=== PATIENT | female | born 1950 | race Caucasian/White ===

== ENCOUNTER 2021-02-17 12:52 | Inpatient (IN) | payer BC, MEDICARE ==
[~2021-02-17] VITALS: Ht 170.2 cm; Wt 76.0 kg
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
[2021-02-17] MEDS ORDERED: MORPHINE SULFATE 4 MG/ML, 1ML ONE (13:20)
[2021-02-17] MEDS ORDERED: MORPHINE SULFATE 4 MG/ML, 1ML IVPush ONE (13:30)
--- NOTE | 2021-02-17 13:49 | NUR ---
PT WAS MEDICATED FOR PAIN AGAIN. TO XR VIA [facility].
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
[2021-02-17] MEDS ORDERED: HYDROmorphone 2 MG/ML, 1ML ONE (14:50)
[2021-02-17] MEDS ORDERED: HYDROmorphone 2 MG/ML, 1ML IVPush PRN ×2 (15:00→15:30)
--- NOTE | 2021-02-17 15:02 | NUR ---
PT MEDICATED FOR R HIP PAIN AGAIN. RELUCTANT TO BE MOVED ONTO BACK FOR CXR, STATES SHE HAS SPINE PROBLEMS AND SCOLIOSIS ALSO AND CAN'T LAY HER HEAD/NECK DOWN ALL THE WAY. ERP AWARE. REPORTED TO ALCON BURTON.
[2021-02-17 15:06] LABS: ALBUMIN 3.6 g/dL (3.4-5.0); ANION GAP 5 mmol/L (5-15); CALCIUM 8.6 mg/dL (8.5-10.1); CHLORIDE 109 mmol/L (98-107); CREATININE 0.65 mg/dL (0.55-1.02)
[2021-02-17 15:07] LABS: BASOPHILS % (AUTO) 1 % (0-1); EOSINOPHILS % (AUTO) 2 % (1-7); LYMPHOCYTES % (AUTO) 8 % (22-44); MEAN CORPUSCULAR HEMOGLOBIN 31.7 pg (27.0-34.8); MEAN CORPUSCULAR HGB CONC 34.6 g/dL (32.4-35.8); MEAN PLATELET VOLUME 9.3 fL (7.4-10.4); MONOCYTES % (AUTO) 5 % (2-9); NEUTROPHILS % (AUTO) 85 % (42-75); PLATELET COUNT 181 x10^3/uL (130-400); RED CELL DISTRIBUTION WIDTH 12.9 % (9.6-15.2)
[2021-02-17 15:18] LABS: MD NO
[2021-02-17] MEDS ORDERED: HYDROmorphone 1 MG/ML, 1ML INJ ONE ×3 (15:21→18:47)
[2021-02-17] MEDS ORDERED: SODIUM CHLORIDE 0.9% 1,000 ML IV ONE (15:30)
[2021-02-17] MEDS ORDERED: NEOSTIGMINE 1 MG/ML, 10ML ONE (15:53)
[2021-02-17] MEDS ORDERED: GLYCOPYRROLATE 0.2MG/1ML, 5ML ONE (15:53)
--- NOTE | 2021-02-17 15:57 | NUR ---
PHONE REPORT TO MICHEAL WHITE
[2021-02-17] MEDS ORDERED: CHLORHEXIDINE 15 ML UDC ONE (16:15)
[2021-02-17] MEDS ORDERED: ACETAMINOPHEN 325 MG TABLET PO PRN ×2 (16:30→18:30)
[2021-02-17] MEDS ORDERED: CHLORHEXIDINE 15 ML UDC PO ONE (16:30)
[2021-02-17] MEDS ORDERED: MIDAZOLAM 1 MG/ML, 2ML ONE (16:54)
[2021-02-17] MEDS ORDERED: FENTANYL PF 250 MCG/5ML ONE (16:54)
[2021-02-17] MEDS ORDERED: PROPOFOL 10 MG/ML, 20ML ONE (16:55)
[2021-02-17] MEDS ORDERED: MAGNESIUM SULFATE 1 GM/2 ML ONE (16:58)
[2021-02-17] MEDS ORDERED: CEFAZOLIN 1,000 MG ONE ×2 (17:43)
[2021-02-17] MEDS ORDERED: ONDANSETRON 2MG/ML, 2ML ONE ×2 (17:43→18:48)
[2021-02-17] MEDS ORDERED: DEXAMETHASONE 4 MG/ML, 1ML ONE ×2 (17:43)
[2021-02-17] MEDS ORDERED: ROCURONIUM 10MG/ML,5ML ONE (17:43)
[2021-02-17] MEDS ORDERED: LIDOCAINE-MPF 2% ,5ML ONE (17:43)
[2021-02-17] MEDS ORDERED: OXYcodone 5 MG/5 ML ORAL.SOL UDC ONE (18:18)
[2021-02-17] MEDS: HYDROmorphone 1 MG/ML, 1ML INJ IVPush PRN ×2 (18:18→18:36)
[2021-02-17] MEDS ORDERED: ONDANSETRON 2MG/ML, 2ML IVPush PRN (18:30)
[2021-02-17] MEDS ORDERED: DIPHENHYDRAMINE 50 MG/ML, 1ML IVPush PRN (18:30)
[2021-02-17] MEDS ORDERED: DIAZEPAM 5 MG/ML, 2ML IVPush PRN (18:30)
[2021-02-17] MEDS ORDERED: hydrALAzine 20 MG/ML, 1ML IV PRN (18:30)
[2021-02-17] MEDS ORDERED: FENTANYL PF 100 MCG/2ML IV PRN (18:30)
[2021-02-17] MEDS ORDERED: LABETALOL 5MG/ML, 20ML IV PRN (18:30)
[2021-02-17] MEDS: OXYcodone 5 MG/5 ML ORAL.SOL UDC PO PRN ×2 (18:36→21:33)
[2021-02-17 20:59] VITALS: BP 128/80
[2021-02-17 21:00] VITALS: BP 126/84
[2021-02-17 22:00] VITALS: BP 119/80
[2021-02-17 23:00] VITALS: BP 125/74
[2021-02-18] MEDS ORDERED: OXYcodone 5 MG/5 ML ORAL.SOL UDC PO ONE (01:30)
[2021-02-18 01:54] VITALS: BP 168/90
[2021-02-18] MEDS: CEFAZOLIN PMX 2GM/50ML 50 ML IVPB SCH ×2 (03:44→11:59)
[2021-02-18 05:52] LABS: BASOPHILS % (AUTO) 0 % (0-1); EOSINOPHILS % (AUTO) 0 % (1-7); LYMPHOCYTES % (AUTO) 4 % (22-44); MEAN PLATELET VOLUME 9.4 fL (7.4-10.4); MONOCYTES % (AUTO) 4 % (2-9); NEUTROPHILS % (AUTO) 92 % (42-75); PLATELET COUNT 185 x10^3/uL (130-400); RED BLOOD COUNT 4.02 x10^6/uL (3.82-5.3)
[2021-02-18 05:56] LABS: MD NO
[2021-02-18 06:06] LABS: CHLORIDE 107 mmol/L (98-107)
[2021-02-18 06:15] LABS: ANION GAP 5 mmol/L (5-15); CALCIUM 8.4 mg/dL (8.5-10.1); CREATININE 0.69 mg/dL (0.55-1.02)
[2021-02-18 07:01] VITALS: BP 127/73
[2021-02-18] MEDS ORDERED: OXYcodone/APAP 5/325MG TABLET PO PRN (08:30)
[2021-02-18] MEDS: HYDROcodone/APAP 7.5-325MG/15ML UDC PO PRN ×3 (09:29→17:54)
[2021-02-18] MEDS: ENOXAPARIN 40 MG/0.4 ML SQ SCH (10:55)
[2021-02-18 13:07] VITALS: BP 116/72
[2021-02-18] MEDS ORDERED: HYDROcodone/APAP 5/325 TABLET ONE (18:32)
[2021-02-18 20:05] VITALS: BP 123/75
[2021-02-19 01:17] VITALS: BP 132/82
[2021-02-19 05:07] LABS: BASOPHILS % (AUTO) 1 % (0-1); EOSINOPHILS % (AUTO) 1 % (1-7); LYMPHOCYTES % (AUTO) 11 % (22-44); MD NO; MEAN CORPUSCULAR HEMOGLOBIN 31.9 pg (27.0-34.8); MEAN CORPUSCULAR HGB CONC 34.3 g/dL (32.4-35.8); MEAN PLATELET VOLUME 9.3 fL (7.4-10.4); MONOCYTES % (AUTO) 9 % (2-9); NEUTROPHILS % (AUTO) 79 % (42-75); PLATELET COUNT 178 x10^3/uL (130-400); RED BLOOD COUNT 3.58 x10^6/uL (3.82-5.3); RED CELL DISTRIBUTION WIDTH 12.9 % (9.6-15.2)
[2021-02-19 05:21] LABS: ANION GAP 4 mmol/L (5-15); CALCIUM 8.4 mg/dL (8.5-10.1); CHLORIDE 108 mmol/L (98-107); CREATININE 0.77 mg/dL (0.55-1.02)
[2021-02-19 07:08] VITALS: BP 116/76
[2021-02-19] MEDS: ENOXAPARIN 40 MG/0.4 ML SQ SCH (09:58)
[2021-02-19] MEDS: DOCUSATE 100 MG CAPSULE PO SCH ×2 (11:00→20:28)
[2021-02-19] MEDS: DOCUSATE 50 MG/5 ML, 10ML UDC PO SCH ×2 (11:00→20:28)
[2021-02-19 11:41] VITALS: BP 127/80
[2021-02-19] MEDS: POLYETHYLENE GLYCOL 17 GM PACKET PO SCH (11:58)
[2021-02-19 13:26] VITALS: BP 103/66
[2021-02-19 18:36] VITALS: BP 110/70
[2021-02-19 22:40] LABS: MICROSCOPIC INDICATED
[2021-02-20 00:26] VITALS: BP 119/73
[2021-02-20 05:43] LABS: BASOPHILS % (AUTO) 1 % (0-1); EOSINOPHILS % (AUTO) 1 % (1-7); LYMPHOCYTES % (AUTO) 10 % (22-44); MEAN CORPUSCULAR HEMOGLOBIN 32.2 pg (27.0-34.8); MEAN PLATELET VOLUME 9.6 fL (7.4-10.4); MONOCYTES % (AUTO) 9 % (2-9); NEUTROPHILS % (AUTO) 79 % (42-75); PLATELET COUNT 182 x10^3/uL (130-400); RED BLOOD COUNT 3.48 x10^6/uL (3.82-5.3)
[2021-02-20 05:50] LABS: CHLORIDE 107 mmol/L (98-107)
[2021-02-20 05:52] LABS: MD NO
[2021-02-20 06:06] LABS: ALANINE AMINOTRANSFERASE 15 U/L (12-78); ALBUMIN 3.2 g/dL (3.4-5.0); ALKALINE PHOSPHATASE 50 U/L (45-117); ANION GAP 6 mmol/L (5-15); CALCIUM 8.3 mg/dL (8.5-10.1); CREATININE 0.64 mg/dL (0.55-1.02); TOTAL PROTEIN 6.6 g/dL (6.4-8.2)
[2021-02-20 07:06] VITALS: BP 100/62
[2021-02-20] MEDS: DOCUSATE 50 MG/5 ML, 10ML UDC PO SCH ×2 (08:44→21:00)
[2021-02-20] MEDS: POLYETHYLENE GLYCOL 17 GM PACKET PO SCH (08:44)
[2021-02-20] MEDS: DOCUSATE 100 MG CAPSULE PO SCH ×2 (08:44→21:05)
[2021-02-20] MEDS: ENOXAPARIN 40 MG/0.4 ML SQ SCH (09:34)
[2021-02-20 13:07] VITALS: BP 115/72
[2021-02-20 19:02] VITALS: BP_SYST 130
[2021-02-21 01:03] VITALS: BP 122/65
[2021-02-21 07:04] VITALS: BP 109/76
[2021-02-21] MEDS: DOCUSATE 100 MG CAPSULE PO SCH ×2 (07:43→20:57)
[2021-02-21] MEDS: POLYETHYLENE GLYCOL 17 GM PACKET PO SCH (08:27)
[2021-02-21] MEDS: DOCUSATE 50 MG/5 ML, 10ML UDC PO SCH ×2 (08:27→20:52)
[2021-02-21] MEDS: ENOXAPARIN 40 MG/0.4 ML SQ SCH (10:33)
[2021-02-21 13:00] VITALS: BP 116/77
[2021-02-21] MEDS ORDERED: ONDANSETRON ODT 4 MG ONE (14:59)
[2021-02-21 19:57] VITALS: BP 122/69
[2021-02-22 04:52] VITALS: BP 127/84
[2021-02-22 05:50] LABS: BASOPHILS % (AUTO) 1 % (0-1); EOSINOPHILS % (AUTO) 4 % (1-7); LYMPHOCYTES % (AUTO) 10 % (22-44); MEAN CORPUSCULAR HEMOGLOBIN 32.6 pg (27.0-34.8); MEAN CORPUSCULAR HGB CONC 34.8 g/dL (32.4-35.8); MEAN PLATELET VOLUME 9.4 fL (7.4-10.4); MONOCYTES % (AUTO) 9 % (2-9); NEUTROPHILS % (AUTO) 76 % (42-75); PLATELET COUNT 211 x10^3/uL (130-400); RED BLOOD COUNT 3.16 x10^6/uL (3.82-5.3); RED CELL DISTRIBUTION WIDTH 13.2 % (9.6-15.2)
[2021-02-22 05:52] LABS: MD NO
[2021-02-22 05:54] LABS: ANION GAP 3 mmol/L (5-15); CALCIUM 8.6 mg/dL (8.5-10.1); CHLORIDE 106 mmol/L (98-107)
[2021-02-22 05:56] LABS: CREATININE 0.65 mg/dL (0.55-1.02)
[2021-02-22 07:12] VITALS: BP 118/70
[2021-02-22] MEDS: ONDANSETRON 2MG/ML, 2ML IVPush PRN ×3 (09:50→21:43)
[2021-02-22] MEDS: SENNOSIDES 8.6 MG TABLET PO SCH ×2 (10:30→21:00)
[2021-02-22] MEDS ORDERED: BISACODYL 10 MG SUPP PR ONE (10:30)
[2021-02-22] MEDS: ENOXAPARIN 40 MG/0.4 ML SQ SCH (10:38)
[2021-02-22] MEDS: POLYETHYLENE GLYCOL 17 GM PACKET PO SCH (10:57)
[2021-02-22 13:14] VITALS: BP 142/73
[2021-02-22 14:55] LABS: BASOPHILS % (AUTO) 1 % (0-1); EOSINOPHILS % (AUTO) 3 % (1-7); LYMPHOCYTES % (AUTO) 7 % (22-44); MEAN CORPUSCULAR HEMOGLOBIN 32.3 pg (27.0-34.8); MEAN CORPUSCULAR HGB CONC 34.2 g/dL (32.4-35.8); MONOCYTES % (AUTO) 8 % (2-9); NEUTROPHILS % (AUTO) 82 % (42-75); PLATELET COUNT 224 x10^3/uL (130-400); RED BLOOD COUNT 3.24 x10^6/uL (3.82-5.3); RED CELL DISTRIBUTION WIDTH 13.1 % (9.6-15.2)
[2021-02-22 14:57] LABS: MD NO
[2021-02-22 15:08] LABS: TROPONIN I < 0.015 ng/mL (0.000-0.045)
[2021-02-22 18:41] VITALS: BP 142/80
[2021-02-22 20:55] LABS: TROPONIN I < 0.015 ng/mL (0.000-0.045)
[2021-02-23 01:25] VITALS: BP 135/80
[2021-02-23] MEDS: ONDANSETRON 2MG/ML, 2ML IVPush PRN (04:58)
[2021-02-23 05:56] LABS: BASOPHILS % (AUTO) 1 % (0-1); EOSINOPHILS % (AUTO) 2 % (1-7); LYMPHOCYTES % (AUTO) 7 % (22-44); MEAN CORPUSCULAR HEMOGLOBIN 32.4 pg (27.0-34.8); MEAN CORPUSCULAR HGB CONC 34.4 g/dL (32.4-35.8); MEAN PLATELET VOLUME 9.1 fL (7.4-10.4); MONOCYTES % (AUTO) 8 % (2-9); NEUTROPHILS % (AUTO) 84 % (42-75); PLATELET COUNT 231 x10^3/uL (130-400); RED CELL DISTRIBUTION WIDTH 13.4 % (9.6-15.2)
[2021-02-23 05:59] LABS: MD NO
[2021-02-23 07:46] VITALS: BP 117/73
[2021-02-23] MEDS: POLYETHYLENE GLYCOL 17 GM PACKET PO SCH (09:00)
[2021-02-23] MEDS: SENNOSIDES 8.6 MG TABLET PO SCH ×2 (10:12→20:52)
[2021-02-23] MEDS: METOCLOPRAMIDE 5 MG/ML, 2ML IVPush PRN ×3 (10:15→22:25)
[2021-02-23 12:18] VITALS: BP 155/78
[2021-02-23] MEDS: ENOXAPARIN 40 MG/0.4 ML SQ SCH (12:23)
[2021-02-23] MEDS: SIMETHICONE 125 MG CHEW TAB PO SCH ×4 (12:23→22:30)
[2021-02-23] MEDS ORDERED: OMNIPAQUE 350 MG/ML, 75ML BOTTLE ONE (13:31)
[2021-02-23 19:04] VITALS: BP 147/70
[2021-02-24 01:32] VITALS: BP 140/79
[2021-02-24] MEDS: METOCLOPRAMIDE 5 MG/ML, 2ML IVPush PRN ×3 (04:09→19:36)
[2021-02-24 07:00] VITALS: BP 86/56
[2021-02-24] MEDS: SIMETHICONE 125 MG CHEW TAB PO SCH ×5 (07:46→20:42)
[2021-02-24 08:05] VITALS: BP 129/77
[2021-02-24] MEDS: SENNOSIDES 8.6 MG TABLET PO SCH ×2 (09:00→20:43)
[2021-02-24] MEDS: POLYETHYLENE GLYCOL 17 GM PACKET PO SCH (09:00)
[2021-02-24] MEDS: ENOXAPARIN 40 MG/0.4 ML SQ SCH (12:05)
[2021-02-24 12:50] VITALS: BP 157/82
[2021-02-24] MEDS ORDERED: LACTATED RINGERS 1,000 ML IVBOLUS ONE (15:30)
[2021-02-24 18:50] VITALS: BP 150/82
[2021-02-24] MEDS ORDERED: TRAZODONE 50MG TABLET PO PRN (21:00)
[2021-02-25 01:36] VITALS: BP 142/85
[2021-02-25] MEDS: METOCLOPRAMIDE 5 MG/ML, 2ML IVPush PRN ×2 (02:46→10:11)
[2021-02-25] MEDS: SIMETHICONE 125 MG CHEW TAB PO SCH ×3 (06:30→15:18)
[2021-02-25 07:29] VITALS: BP 136/79
[2021-02-25] MEDS: SENNOSIDES 8.6 MG TABLET PO SCH (08:10)
[2021-02-25] MEDS: POLYETHYLENE GLYCOL 17 GM PACKET PO SCH (08:10)
[2021-02-25] MEDS: ENOXAPARIN 40 MG/0.4 ML SQ SCH (11:24)
[2021-02-25] MEDS ORDERED: TRAZ50TA66 PO (11:25)
[2021-02-25] MEDS ORDERED: METO10TA82 PO (11:25)
[2021-02-25] MEDS ORDERED: ACET325T26 PO (11:25)
[2021-02-25] MEDS ORDERED: SENN-99 PO (11:25)
[2021-02-25] MEDS ORDERED: ENOX40SY4 SQ (11:25)
[2021-02-25] MEDS ORDERED: POLY17PO5 PO (11:25)
[2021-02-25] MEDS ORDERED: SIME125T PO (11:25)
[2021-02-25 15:20] VITALS: BP 138/74
== END 2021-02-25 16:53 | DRG 481 ==
LOC: ED 14:50 → EDIP 15:37 → 5SO 19:43 → 4NE 02-19 11:02
PROVIDERS: ADMIT Internal Medicine; ATTEND Internal Medicine
PROC: 0QS636Z Reposition Right Upper Femur with Intramedullary Internal Fixation Device, Percutaneous Approach (ICD-10-PCS; principal; 2021-02-17 17:00)
DX: S72.141A Displaced intertrochanteric fracture of right femur, initial encounter for closed fracture (principal); D62 Acute posthemorrhagic anemia; I48.20 Chronic atrial fibrillation, unspecified; K59.00 Constipation, unspecified; I51.7 Cardiomegaly; Z20.822 Contact with and (suspected) exposure to COVID-19; D72.829 Elevated white blood cell count, unspecified; G47.00 Insomnia, unspecified; W01.0XXA Fall on same level from slipping, tripping and stumbling without subsequent striking against object, initial encounter; Z80.3 Family history of malignant neoplasm of breast; Y93.89 Activity, other specified; Y92.098 Other place in other non-institutional residence as the place of occurrence of the external cause; Y99.8 Other external cause status; Z88.2 Allergy status to sulfonamides; Z88.6 Allergy status to analgesic agent; S70.01XA Contusion of right hip, initial encounter
CPT/HCPCS: 36415; 71045; 71275; 76000; 80048; 80053; 81001; 82040; 83735; 84443; 84484; 85025; 85379; 87635; 93005; 93306; 96374; 96375; 96376; C1713; G0378; J0690; J1100; J1170; J1650; J2250; J2405; J2704; J2710; J3010; J3475; Q9967; C1769; J2270; J2765; J7030; J7120